=== PATIENT | female | born 1945 | race Native Hawaiian/Other Pacific Islander ===

== ENCOUNTER 2016-11-26 06:23 | Day surgery (SDC) | payer MEDICARE ==
[2016-11-23 07:58] VITALS: BMI 26.2
[2016-11-26] MEDS ORDERED: Lidocaine 1% Inj (20ml) ONE (07:53)
[2016-11-26] MEDS ORDERED: Bupivacaine HCl 0.25% PF (10 ml) Inj ONE (07:53)
[2016-11-26] MEDS ORDERED: ceFAZolin 1 gm FROZEN Premix 50 ML IVPB ONE (07:54)
[2016-11-26] MEDS ORDERED: Propofol 10 mg/ml Inj (20 ML) ONE (07:55)
--- NOTE | 2016-11-26 08:42 | PCM.SURG1 ---
Surgeon's Initial Post Op Note - Surgeon's Notes Surgeon: Dr. Weems Elder Counselor: Dr. 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
--- NOTE | 2016-11-26 09:42 | OP ---
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 PROCEDURE CARRIED OUT: Excision of 2 cm lesions left elbow. SURGEON: Adama Weems Jr., MD APPLICATION DEFENSE MANAGER: Dr. Moncada, resident. ANESTHESIOLOGIST: , local with sedation. 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 Presents with thes e lesions at her elbow, which are painful particularly when she puts her elbow on a counter, etc. OPERATIVE FINDINGS: Lesions were removed completely. There were multiple nodules inside of these, m ost consistent with tophi, and 2 separate incisions were made. PROCEDURE: The patient was given local anesthesia, intravenous sedation. Direct incisions were made over these and they were excised. After this was done, the wound was closed in layers, 5 nylon sutu res in the skin and a noncompressive dressing. OPERATION CARRIED OUT: Excision of 2 lesions left elbow, 2 cm in size. Adama Weems Jr., MD cc:Giovani Mccabe MD 58 TT: 11/26/2016 09:41:23 en
[2016-11-26 11:16] VITALS: BP 148/57; PULSE 61; RESP 17; TEMP 97.2; O2SAT 99
== END 2016-11-26 11:10 | disposition home or self-care (01) ==
LOC: C.SDS 06:23
PROVIDERS: ATTEND Surgery Vascular Surgery
DX: D48.1 Neoplasm of uncertain behavior of connective and other soft tissue (principal)
CPT/HCPCS: 24076; 82948; 88304; 88342; J2704; J3010